=== PATIENT | female | born 1960 | race African-American/Black ===

== ENCOUNTER 2022-12-10 14:35 | Inpatient (IN) | payer OTHER ==
[2022-12-10 15:00] VITALS: BMI 20.2
[2022-12-10] MEDS ORDERED: INSULIN (NOVOLOG) ASPART 100 UNITS/ML 10ML VIAL ONE (19:28)
[2022-12-10] MEDS ORDERED: BENZONATATE 200 MG CAPSULE PO PRN (19:43)
[2022-12-10] MEDS ORDERED: ONDANSETRON *ODT* 4 MG TABLET SL PRN (19:43)
[2022-12-10] MEDS ORDERED: guaiFENesin 600 MG TABLET.ER (FP) PO PRN (19:43)
[2022-12-10] MEDS ORDERED: NALOXONE HCL 0.4 MG/ML VIAL IM PRN (19:43)
[2022-12-10] MEDS ORDERED: MAGNESIUM HYDROX 2400MG/30ML ORAL SUSPENSION 30 ML CUP PO PRN (19:43)
[2022-12-10] MEDS ORDERED: BISMUTH SUBSALICYLATE 524 MG/30 ML PO PRN (19:43)
[2022-12-10] MEDS: INSULIN SLIDING SCALE (NOVOLOG) 1 VIAL SQ SCH ×2 (19:43→21:47)
[2022-12-10] MEDS ORDERED: POLYETHYLENE GLYCOL (HEALTHYLAX) 3350 17 GM PACKET PO PRN (19:43)
[2022-12-10] MEDS ORDERED: BENZOCAINE/MENTHOL (CHLORASEPTIC ) LOZENGE MM PRN (19:43)
[2022-12-10] MEDS ORDERED: NALOXONE HCL (KLOXXADO) 8 MG SPRAY NS PRN (19:43)
[2022-12-10] MEDS ORDERED: ACETAMINOPHEN 325 MG TABLET (FP) PO PRN (19:43)
[2022-12-10] MEDS ORDERED: LOPERAMIDE HCL 2 MG CAPSULE PO PRN (19:43)
[2022-12-10] MEDS ORDERED: P-EPHED 60MG/TRIPROLIDI 2.5MG TABLET PO PRN (19:43)
[2022-12-10] MEDS ORDERED: IBUPROFEN 400 MG TABLET (FP) PO PRN (19:43)
[2022-12-10] MEDS ORDERED: DICYCLOMINE HCL 10 MG CAPSULE PO PRN (19:43)
[2022-12-10] MEDS ORDERED: cloNIDine HCL 0.1 MG TABLET PO PRN (19:52)
[2022-12-10] MEDS: LIDOCAINE 5% TOPICAL PATCH TP SCH (20:58)
[2022-12-10] MEDS: THIAMINE HCL 100 MG TABLET (FP) PO SCH (21:47)
[2022-12-10] MEDS: MELATONIN 5 MG TABLETS PO SCH (21:47)
[2022-12-10] MEDS: METHOCARBAMOL 500 MG TABLET PO PRN (21:49)
[2022-12-10] MEDS: LIDOCAINE PATCH REMOVAL MC SCH (22:59)
[2022-12-11] MEDS: hydrOXYzine PAMOATE 25 MG CAPSULE (FP) PO PRN (05:34)
[2022-12-11] MEDS: INSULIN SLIDING SCALE (NOVOLOG) 1 VIAL SQ SCH ×3 (06:37→17:31)
[2022-12-11] MEDS ORDERED: INSULIN SLIDING SCALE (NOVOLOG) 1 VIAL SQ ONE (06:40)
[2022-12-11] MEDS ORDERED: cloNIDine HCL 0.1 MG TABLET PO PRN (09:59)
[2022-12-11] MEDS ORDERED: methaDONE HCL 10 MG TABLET (FOR DETOX USE ONLY) PO ONE (09:59)
[2022-12-11] MEDS: PRENATAL VITAMINS W/ FOLIC ACID TABLET (FP) PO SCH (10:24)
[2022-12-11] MEDS: LIDOCAINE 5% TOPICAL PATCH TP SCH (10:24)
[2022-12-11] MEDS: NICOTINE 7 MG/24 HOURS TOPICAL PATCH TD SCH (10:25)
[2022-12-11] MEDS: METHOCARBAMOL 500 MG TABLET PO PRN (10:26)
[2022-12-11 10:39] LABS: HEMATOCRIT 30.3 % (32.4-45.2); HEMOGLOBIN 9.9 GM/dL (10.7-15.3); MCH 28.9 pg (25.7-33.7); MCHC 32.6 g/dl (32.0-36.0); MEAN CELL VOLUME 88.8 fl (80-96); MEAN PLT VOLUME 7.8 fl (7.5-11.1); PLATELET COUNT 307 10^3/uL (134-434); RBC 3.41 M/mm3 (3.60-5.2); RDW 13.8 % (11.6-15.6); WHITE BLOOD COUNT 7.1 K/mm3 (4.0-10.0)
[2022-12-11 12:07] LABS: POTASSIUM 4.7 mmol/L (3.5-5.1)
[2022-12-11 12:18] LABS: ALBUMIN 2.8 g/dl (3.4-5.0); BLOOD UREA NITROGEN 44.6 mg/dL (7-18)
[2022-12-11 12:21] LABS: CREATININE 1.7 mg/dL (0.55-1.3)
[2022-12-11 12:23] LABS: BILIRUBIN,TOTAL 0.4 mg/dL (0.2-1); TOT PROT 6.7 g/dl (6.4-8.2)
[2022-12-11] MEDS: ENALAPRIL MALEATE 10 MG TABLET PO SCH (16:56)
[2022-12-11] MEDS ORDERED: INSULIN (NOVOLOG) ASPART 100 UNITS/ML 10ML VIAL SQ ONE (17:26)
[2022-12-11] MEDS: THIAMINE HCL 100 MG TABLET (FP) PO SCH (21:24)
[2022-12-11] MEDS: LIDOCAINE PATCH REMOVAL MC SCH (21:25)
[2022-12-11] MEDS: INSULIN (LEVEMIR) 100 UNITS/ML UNITS SQ SCH (21:25)
[2022-12-11] MEDS: MELATONIN 5 MG TABLETS PO SCH (21:25)
[2022-12-11] MEDS ORDERED: INSULIN (LEVEMIR) 100 UNITS/ML UNITS SQ SCH (22:00)
[2022-12-12] MEDS: INSULIN SLIDING SCALE (NOVOLOG) 1 VIAL SQ SCH ×3 (07:10→16:50)
[2022-12-12] MEDS: hydrOXYzine PAMOATE 25 MG CAPSULE (FP) PO PRN ×2 (10:18→22:10)
[2022-12-12] MEDS: NICOTINE 7 MG/24 HOURS TOPICAL PATCH TD SCH (10:18)
[2022-12-12] MEDS: METHOCARBAMOL 500 MG TABLET PO PRN ×2 (10:18→22:10)
[2022-12-12] MEDS: ENALAPRIL MALEATE 10 MG TABLET PO SCH (10:18)
[2022-12-12] MEDS: LIDOCAINE 5% TOPICAL PATCH TP SCH (10:19)
[2022-12-12] MEDS: PRENATAL VITAMINS W/ FOLIC ACID TABLET (FP) PO SCH (10:19)
[2022-12-12] MEDS: INSULIN (LEVEMIR) 100 UNITS/ML UNITS SQ SCH (22:08)
[2022-12-12] MEDS: MAG HYDROX/AL HYDROX/SIMETH 30 ML UNIT-DOSE CUP PO PRN (22:09)
[2022-12-12] MEDS: THIAMINE HCL 100 MG TABLET (FP) PO SCH (22:11)
[2022-12-12] MEDS: MELATONIN 5 MG TABLETS PO SCH (22:11)
[2022-12-12] MEDS: MICONAZOLE NITRATE 2% VAGINAL CREAM 45 GM TUBE VG SCH (22:13)
[2022-12-12] MEDS: LIDOCAINE PATCH REMOVAL MC SCH (22:14)
[2022-12-13] MEDS: hydrOXYzine PAMOATE 25 MG CAPSULE (FP) PO PRN (05:32)
[2022-12-13] MEDS: INSULIN SLIDING SCALE (NOVOLOG) 1 VIAL SQ SCH ×3 (06:05→17:15)
[2022-12-13] MEDS ORDERED: methaDONE HCL 10 MG TABLET (FOR DETOX USE ONLY) PO ONE (10:00)
[2022-12-13] MEDS: PRENATAL VITAMINS W/ FOLIC ACID TABLET (FP) PO SCH (10:08)
[2022-12-13] MEDS: NICOTINE 7 MG/24 HOURS TOPICAL PATCH TD SCH (10:09)
[2022-12-13] MEDS: LIDOCAINE 5% TOPICAL PATCH TP SCH (10:09)
[2022-12-13] MEDS: ENALAPRIL MALEATE 10 MG TABLET PO SCH (10:10)
[2022-12-13] MEDS: MAG HYDROX/AL HYDROX/SIMETH 30 ML UNIT-DOSE CUP PO PRN (11:46)
[2022-12-13] MEDS: LIDOCAINE PATCH REMOVAL MC SCH (22:34)
[2022-12-13] MEDS: THIAMINE HCL 100 MG TABLET (FP) PO SCH (22:34)
[2022-12-13] MEDS: INSULIN (LEVEMIR) 100 UNITS/ML UNITS SQ SCH (22:34)
[2022-12-13] MEDS: MELATONIN 5 MG TABLETS PO SCH (22:34)
[2022-12-13] MEDS: MICONAZOLE NITRATE 2% VAGINAL CREAM 45 GM TUBE VG SCH (22:35)
[2022-12-13] MEDS: IBUPROFEN 600 MG TABLET (FP) PO PRN (22:37)
[2022-12-14] MEDS: hydrOXYzine PAMOATE 25 MG CAPSULE (FP) PO PRN (05:41)
[2022-12-14] MEDS: METHOCARBAMOL 500 MG TABLET PO PRN ×2 (05:43→21:49)
[2022-12-14] MEDS: IBUPROFEN 600 MG TABLET (FP) PO PRN ×2 (05:43→21:48)
[2022-12-14] MEDS: INSULIN SLIDING SCALE (NOVOLOG) 1 VIAL SQ SCH ×3 (06:24→16:41)
[2022-12-14] MEDS: PRENATAL VITAMINS W/ FOLIC ACID TABLET (FP) PO SCH (09:45)
[2022-12-14] MEDS: ENALAPRIL MALEATE 10 MG TABLET PO SCH (09:45)
[2022-12-14] MEDS: LIDOCAINE 5% TOPICAL PATCH TP SCH (09:45)
[2022-12-14] MEDS: NICOTINE 7 MG/24 HOURS TOPICAL PATCH TD SCH (09:46)
[2022-12-14] MEDS: MAG HYDROX/AL HYDROX/SIMETH 30 ML UNIT-DOSE CUP PO PRN (16:57)
[2022-12-14] MEDS: INSULIN (LEVEMIR) 100 UNITS/ML UNITS SQ SCH (21:48)
[2022-12-14] MEDS: THIAMINE HCL 100 MG TABLET (FP) PO SCH (21:49)
[2022-12-14] MEDS: MELATONIN 5 MG TABLETS PO SCH (21:49)
[2022-12-14] MEDS: LIDOCAINE PATCH REMOVAL MC SCH (22:55)
[2022-12-14] MEDS: MICONAZOLE NITRATE 2% VAGINAL CREAM 45 GM TUBE VG SCH (22:56)
[2022-12-15] MEDS: hydrOXYzine PAMOATE 25 MG CAPSULE (FP) PO PRN ×2 (06:00→21:42)
[2022-12-15] MEDS: METHOCARBAMOL 500 MG TABLET PO PRN (06:00)
[2022-12-15] MEDS: INSULIN SLIDING SCALE (NOVOLOG) 1 VIAL SQ SCH ×3 (06:27→16:53)
[2022-12-15] MEDS: PRENATAL VITAMINS W/ FOLIC ACID TABLET (FP) PO SCH (09:50)
[2022-12-15] MEDS: ENALAPRIL MALEATE 10 MG TABLET PO SCH (09:51)
[2022-12-15] MEDS: LIDOCAINE 5% TOPICAL PATCH TP SCH (09:51)
[2022-12-15] MEDS ORDERED: methaDONE HCL 10 MG TABLET (FOR DETOX USE ONLY) PO ONE (10:00)
[2022-12-15] MEDS: NICOTINE 7 MG/24 HOURS TOPICAL PATCH TD SCH (10:12)
[2022-12-15 12:25] LABS: CHLORIDE 100 mmol/L (98-107); SODIUM 137 mmol/L (136-145)
[2022-12-15 12:29] LABS: CALCIUM 9.2 mg/dL (8.5-10.1)
[2022-12-15 12:31] LABS: BLOOD UREA NITROGEN 65.4 mg/dL (7-18); CO2 32 mmol/L (21-32); GLUCOSE,RANDOM 151 mg/dL (74-106)
[2022-12-15 12:34] LABS: CREATININE 1.9 mg/dL (0.55-1.3)
[2022-12-15 12:36] LABS: ANION GAP 5 MMOL/L (8-16); POTASSIUM 6.6 mmol/L (3.5-5.1)
[2022-12-15] MEDS ORDERED: SODIUM POLYSTYRENE SULFONATE 15 GM/60 ML BOTTLE PO ONE ×2 (13:19→23:30)
[2022-12-15 17:07] LABS: POTASSIUM 6.6 mmol/L (3.5-5.1)
[2022-12-15] MEDS ORDERED: LACTULOSE 20 GM/30 ML UDC (FOR ORAL USE ONLY) PO ONE (21:18)
[2022-12-15 21:36] VITALS: BP 142/78; PULSE 104; RESP 18; TEMP 97.5
[2022-12-15] MEDS: INSULIN (LEVEMIR) 100 UNITS/ML UNITS SQ SCH (21:39)
[2022-12-15] MEDS: THIAMINE HCL 100 MG TABLET (FP) PO SCH (21:41)
[2022-12-15] MEDS: MELATONIN 5 MG TABLETS PO SCH (21:42)
[2022-12-15] MEDS: LIDOCAINE PATCH REMOVAL MC SCH (21:42)
[2022-12-15] MEDS: MICONAZOLE NITRATE 2% VAGINAL CREAM 45 GM TUBE VG SCH (21:43)
[2022-12-15] MEDS ORDERED: DOCUSATE SODIUM 100 MG CAPSULE (FP) PO SCH (22:00)
[2022-12-15 23:21] LABS: POTASSIUM 6.3 mmol/L (3.5-5.1)
== END 2022-12-16 07:02 | disposition short-term general hospital (02) | DRG 773 ==
LOC: YASAS 14:35 → Y3N 19:35
PROVIDERS: ADMIT Allergy & Immunology; ATTEND Surgery
PROC: HZ2ZZZZ Detoxification Services for Substance Abuse Treatment (ICD-10-PCS; principal; 2022-12-10)
DX: F11.10 Opioid abuse, uncomplicated (principal); F14.20 Cocaine dependence, uncomplicated; F17.210 Nicotine dependence, cigarettes, uncomplicated; F19.24 Other psychoactive substance dependence with psychoactive substance-induced mood disorder; E87.5 Hyperkalemia; I10 Essential (primary) hypertension; E11.9 Type 2 diabetes mellitus without complications; Z79.4 Long term (current) use of insulin; N28.9 Disorder of kidney and ureter, unspecified; K59.00 Constipation, unspecified; M54.50 Low back pain, unspecified; G89.29 Other chronic pain; Z99.89 Dependence on other enabling machines and devices
CPT/HCPCS: 36415; 80048; 80053; 82962; 83036; 84132; 85027; 86780; 87635; 93005; 93010; Q0162

== ENCOUNTER 2022-12-16 01:18 | Inpatient (IN) | payer OTHER ==
[2022-12-16 01:27] VITALS: BMI 20.7
[2022-12-16] MEDS ORDERED: MAG HYDROX/AL HYDROX/SIMETH 30 ML UNIT-DOSE CUP PO ONE (01:37)
[2022-12-16] MEDS ORDERED: FAMOTIDINE 20 MG/50 ML IVPB 20 MG/50 ML MG IVPB ONE ×2 (01:37→02:15)
[2022-12-16] MEDS ORDERED: MAG HYDROX/AL HYDROX/SIMETH 30 ML UNIT-DOSE CUP ONE (02:15)
[2022-12-16 02:52] LABS: BASO % 0.4 % (0-2.0); EOS % 1.6 % (0-4.5); HEMATOCRIT 25.6 % (32.4-45.2); HEMOGLOBIN 8.5 GM/dL (10.7-15.3); LYMPH % 36.8 % (8-40); MCH 29.4 pg (25.7-33.7); MCHC 33.2 g/dl (32.0-36.0); MEAN CELL VOLUME 88.6 fl (80-96); MEAN PLT VOLUME 6.8 fl (7.5-11.1); MONO % 10.6 % (3.8-10.2); NEUT % 50.6 % (42.8-82.8); PLATELET COUNT 406 10^3/uL (134-434); RBC 2.89 M/mm3 (3.60-5.2); WHITE BLOOD COUNT 5.3 K/mm3 (4.0-10.0)
[2022-12-16 03:42] LABS: CHLORIDE 101 mmol/L (98-107); SODIUM 141 mmol/L (136-145)
[2022-12-16 03:44] LABS: ALBUMIN 2.6 g/dl (3.4-5.0); ANION GAP 3 MMOL/L (8-16); BLOOD UREA NITROGEN 56.3 mg/dL (7-18); CALCIUM 8.6 mg/dL (8.5-10.1); CO2 36 mmol/L (21-32); GLUCOSE,RANDOM 54 mg/dL (74-106); LIPASE 206 U/L (73-393); MAGNESIUM 3.1 mg/dL (1.8-2.4)
[2022-12-16 03:47] LABS: CREATININE 1.9 mg/dL (0.55-1.3); SGOT/AST 128 U/L (15-37)
[2022-12-16 03:48] LABS: SGPT/ALT 173 U/L (13-61)
[2022-12-16 03:49] LABS: ALK PHOS 193 U/L (45-117); BILIRUBIN,TOTAL < 0.1 mg/dL (0.2-1); TOT PROT 6.4 g/dl (6.4-8.2)
[2022-12-16] MEDS ORDERED: DEXTROSE 50%-WATER - 25 GM/50 ML VIAL IVPUSH ONE ×3 (03:50→14:39)
[2022-12-16] MEDS ORDERED: INSULIN REGULAR HUMAN 100 UNITS/ML *VIAL IVPUSH ONE ×2 (03:50→14:41)
[2022-12-16] MEDS ORDERED: SODIUM BICARBONATE 8.4% 50 MEQ/50 ML DISP.SYRIN IVPUSH ONE ×2 (03:50→16:19)
[2022-12-16] MEDS ORDERED: SODIUM ZIRCONIUM CYCLOSILICATE (LOKELMA) 5 GM PACKET PO ONE ×2 (03:51→14:38)
[2022-12-16] MEDS ORDERED: DEXTROSE 50%-WATER 25 GM/50 ML DISP.SYRIN ONE ×3 (03:59→15:12)
[2022-12-16] MEDS ORDERED: SODIUM BICARBONATE 8.4% 50 MEQ/50 ML DISP.SYRIN ONE ×2 (04:38→16:53)
[2022-12-16] MEDS ORDERED: SODIUM ZIRCONIUM CYCLOSILICATE (LOKELMA) 10 GM PACKET ONE ×2 (04:38→15:12)
[2022-12-16] MEDS ORDERED: SODIUM ZIRCONIUM CYCLOSILICATE (LOKELMA) 5 GM PACKET PO SCH ×2 (10:00→22:00)
[2022-12-16] MEDS ORDERED: SODIUM CHLORIDE 1,000 ML IV SCH (10:00)
[2022-12-16 10:48] LABS: LDH 329 U/L (84-246); PHOSPHOROUS 4.4 mg/dL (2.5-4.9)
[2022-12-16 11:03] LABS: IRON SERUM 38 ug/dL (50-175); TOTAL IRON BINDING CAPACITY 224 ug/dL (250-450)
[2022-12-16 11:21] LABS: RETICULOCYTES 0.73 % (0.5-1.5)
[2022-12-16] MEDS: INSULIN (NOVOLOG) ASPART 100 UNITS/ML 10ML VIAL SQ SCH ×3 (11:45→21:30)
[2022-12-16 12:40] LABS: CALCIUM 8.4 mg/dL (8.5-10.1)
[2022-12-16 12:41] LABS: EPI CELLS 9 /uL (0-25.1); HYALINE CASTS 0 /uL (0-3.1); PH,URINE 7.5 (5.0-8.0); URINE APPEARANCE CLOUDY; URINE BACTERIA 881 /uL (0-1359); URINE BILIRUBIN NEGATIVE (NEGATIVE); URINE COLOR YELLOW; URINE GLUCOSE (UA) NEGATIVE (NEGATIVE); URINE KETONE NEGATIVE (NEGATIVE); URINE LEUK ESTERASE 3+ (NEGATIVE); URINE NITRITE NEGATIVE (NEGATIVE); URINE PROTEIN NEGATIVE (NEGATIVE); URINE RBC 38 /uL (0-23.9); URINE UROBILINOGEN 0.2 mg/dL (0.2-1.0); URINE WBC 1452 /uL (0-25.8)
[2022-12-16 12:42] LABS: BLOOD UREA NITROGEN 54.5 mg/dL (7-18)
[2022-12-16] MEDS ORDERED: HEPARIN NA (PORCINE) 5,000 UNITS/ML 1ML VIAL ONE (14:24)
[2022-12-16] MEDS: HEPARIN NA (PORCINE) 5,000 UNITS/ML 1ML VIAL SQ SCH ×2 (14:39→21:09)
[2022-12-16] MEDS ORDERED: FUROSEMIDE 40 MG/4 ML INJECTABLE VIAL IVPUSH ONE (14:58)
[2022-12-16] MEDS ORDERED: SODIUM CHLORIDE 0.45% 1,000 ML IV SCH (15:00)
[2022-12-16] MEDS ORDERED: FUROSEMIDE 40 MG/4 ML INJECTABLE VIAL ONE (15:12)
[2022-12-16 15:18] LABS: CHLORIDE 104 mmol/L (98-107); SODIUM 137 mmol/L (136-145)
[2022-12-16 15:19] LABS: CALCIUM 8.3 mg/dL (8.5-10.1)
[2022-12-16 15:20] LABS: CO2 31 mmol/L (21-32); GLUCOSE,RANDOM 157 mg/dL (74-106)
[2022-12-16 15:27] LABS: BLOOD UREA NITROGEN 53.4 mg/dL (7-18)
[2022-12-16 15:30] LABS: ANION GAP 3 MMOL/L (8-16); POTASSIUM 6.4 mmol/L (3.5-5.1)
[2022-12-16] MEDS ORDERED: CALCIUM GLUC IN NACL, ISO-OSM 1 GM/50 ML BAG IVPB ONE ×2 (15:32→16:09)
[2022-12-16] MEDS ORDERED: CALCIUM GLUCONATE 10% - 1,000 MG/10 ML VIAL IVPB ONE ×2 (16:19→19:36)
[2022-12-16] MEDS: SODIUM CHLORIDE 0.45% 1,000 ML IV SCH ×2 (17:21→21:19)
[2022-12-16 20:41] LABS: CALCIUM 8.5 mg/dL (8.5-10.1)
[2022-12-16 20:42] LABS: BLOOD UREA NITROGEN 54.5 mg/dL (7-18)
[2022-12-16 20:45] LABS: CREATININE 2.1 mg/dL (0.55-1.3)
[2022-12-16] MEDS: MELATONIN 1 MG TABLET PO PRN (21:58)
[2022-12-16] MEDS ORDERED: DEXTROSE 50%-WATER 25 GM/50 ML DISP.SYRIN IVPUSH ONE (23:06)
[2022-12-16] MEDS ORDERED: INSULIN (NOVOLOG) ASPART 100 UNITS/ML 10ML VIAL SQ ONE (23:06)
[2022-12-17 02:34] LABS: POTASSIUM 5.4 mmol/L (3.5-5.1)
[2022-12-17 02:37] LABS: BLOOD UREA NITROGEN 52.3 mg/dL (7-18); CALCIUM 8.4 mg/dL (8.5-10.1)
[2022-12-17 02:40] LABS: CREATININE 2.1 mg/dL (0.55-1.3)
[2022-12-17] MEDS ORDERED: INSULIN (NOVOLOG) ASPART 100 UNITS/ML 10ML VIAL SQ ONE (03:59)
[2022-12-17] MEDS ORDERED: DEXTROSE 50%-WATER 25 GM/50 ML DISP.SYRIN IVPUSH ONE ×2 (03:59→08:18)
[2022-12-17] MEDS: HEPARIN NA (PORCINE) 5,000 UNITS/ML 1ML VIAL SQ SCH ×3 (05:12→22:06)
[2022-12-17] MEDS ORDERED: SODIUM ZIRCONIUM CYCLOSILICATE (LOKELMA) 5 GM PACKET PO SCH (06:00)
[2022-12-17] MEDS: INSULIN (NOVOLOG) ASPART 100 UNITS/ML 10ML VIAL SQ SCH ×4 (06:07→22:15)
[2022-12-17] MEDS: SODIUM CHLORIDE 0.45% 1,000 ML IV SCH (07:30)
[2022-12-17] MEDS ORDERED: DEXTROSE 50%-WATER 25 GM/50 ML DISP.SYRIN ONE (07:55)
[2022-12-17 08:41] LABS: HEMATOCRIT 25.5 % (32.4-45.2); HEMOGLOBIN 8.7 GM/dL (10.7-15.3); MCH 29.9 pg (25.7-33.7); MEAN CELL VOLUME 87.8 fl (80-96); MEAN PLT VOLUME 6.8 fl (7.5-11.1); PLATELET COUNT 412 10^3/uL (134-434); RBC 2.91 M/mm3 (3.60-5.2); RDW 14.2 % (11.6-15.6); WHITE BLOOD COUNT 5.1 K/mm3 (4.0-10.0)
[2022-12-17 09:05] LABS: CHLORIDE 104 mmol/L (98-107); POTASSIUM 5.6 mmol/L (3.5-5.1); SODIUM 140 mmol/L (136-145)
[2022-12-17 09:08] LABS: CALCIUM 8.8 mg/dL (8.5-10.1)
[2022-12-17 09:10] LABS: ALBUMIN 2.4 g/dl (3.4-5.0); ANION GAP 3 MMOL/L (8-16); CO2 33 mmol/L (21-32); MAGNESIUM 2.8 mg/dL (1.8-2.4)
[2022-12-17 09:12] LABS: CREATININE 2.1 mg/dL (0.55-1.3); PHOSPHOROUS 4.7 mg/dL (2.5-4.9); SGOT/AST 103 U/L (15-37); SGPT/ALT 200 U/L (13-61)
[2022-12-17 09:13] LABS: BILIRUBIN,TOTAL 0.1 mg/dL (0.2-1); TOT PROT 5.9 g/dl (6.4-8.2)
[2022-12-17 09:15] LABS: ALK PHOS 174 U/L (45-117)
[2022-12-17 09:23] LABS: GLUCOSE,RANDOM 35 mg/dL (74-106)
[2022-12-17 13:40] LABS: URINE UREA NITROGEN 454 mg/dL (350-1000)
[2022-12-17] MEDS: DEXTROSE 5%-0.45% SALINE 1,000 ML IV SCH (16:47)
[2022-12-17] MEDS: SODIUM ZIRCONIUM CYCLOSILICATE (LOKELMA) 5 GM PACKET PO SCH (22:06)
[2022-12-17] MEDS: MELATONIN 1 MG TABLET PO PRN (23:30)
[2022-12-18] MEDS: HEPARIN NA (PORCINE) 5,000 UNITS/ML 1ML VIAL SQ SCH ×3 (05:37→21:38)
[2022-12-18] MEDS: INSULIN (NOVOLOG) ASPART 100 UNITS/ML 10ML VIAL SQ SCH ×4 (06:09→21:50)
[2022-12-18 07:08] LABS: POTASSIUM 5.9 mmol/L (3.5-5.1)
[2022-12-18 07:10] LABS: ALBUMIN 2.4 g/dl (3.4-5.0); BLOOD UREA NITROGEN 46.5 mg/dL (7-18); CALCIUM 8.9 mg/dL (8.5-10.1)
[2022-12-18 07:13] LABS: CREATININE 1.9 mg/dL (0.55-1.3)
[2022-12-18 07:15] LABS: BILIRUBIN,TOTAL 0.2 mg/dL (0.2-1); TOT PROT 6.1 g/dl (6.4-8.2)
[2022-12-18] MEDS: SODIUM ZIRCONIUM CYCLOSILICATE (LOKELMA) 5 GM PACKET PO SCH ×2 (09:36→21:41)
[2022-12-18] MEDS ORDERED: CEFUROXIME AXETIL 500 MG TABLET PO SCH (11:00)
[2022-12-18] MEDS ORDERED: CEFUROXIME AXETIL 250 MG TABLET PO SCH ×2 (11:15→22:00)
[2022-12-18] MEDS: LIDOCAINE 5% TOPICAL PATCH TP SCH (11:37)
[2022-12-18] MEDS: CEFUROXIME AXETIL 250 MG TABLET PO SCH ×2 (13:57→21:37)
[2022-12-18] MEDS ORDERED: SODIUM ZIRCONIUM CYCLOSILICATE (LOKELMA) 5 GM PACKET PO ONE (15:12)
[2022-12-18 16:16] LABS: POTASSIUM 5.5 mmol/L (3.5-5.1)
[2022-12-18 16:19] LABS: BLOOD UREA NITROGEN 39.4 mg/dL (7-18)
[2022-12-18 16:22] LABS: CREATININE 1.7 mg/dL (0.55-1.3)
[2022-12-18] MEDS: DEXTROSE 5%-0.45% SALINE 1,000 ML IV SCH (17:06)
[2022-12-18] MEDS: MELATONIN 1 MG TABLET PO PRN (21:41)
[2022-12-18] MEDS ORDERED: MICONAZOLE NITRATE 2% VAGINAL CREAM 45 GM TUBE VG SCH (22:00)
[2022-12-18] MEDS ORDERED: LIDOCAINE PATCH REMOVAL MC SCH (22:00)
[2022-12-19] MEDS: DEXTROSE 5%-0.45% SALINE 1,000 ML IV SCH ×2 (05:58→13:42)
[2022-12-19] MEDS: INSULIN (NOVOLOG) ASPART 100 UNITS/ML 10ML VIAL SQ SCH ×4 (06:02→21:55)
[2022-12-19] MEDS: HEPARIN NA (PORCINE) 5,000 UNITS/ML 1ML VIAL SQ SCH ×4 (06:03→22:13)
[2022-12-19 07:37] LABS: HEMATOCRIT 26.9 % (32.4-45.2); HEMOGLOBIN 8.8 GM/dL (10.7-15.3); MCH 29.2 pg (25.7-33.7); MCHC 32.8 g/dl (32.0-36.0); MEAN PLT VOLUME 7.1 fl (7.5-11.1); PLATELET COUNT 443 10^3/uL (134-434); RBC 3.03 M/mm3 (3.60-5.2); WHITE BLOOD COUNT 7.9 K/mm3 (4.0-10.0)
[2022-12-19 08:35] LABS: CALCIUM 8.9 mg/dL (8.5-10.1)
[2022-12-19 08:36] LABS: BLOOD UREA NITROGEN 37.6 mg/dL (7-18)
[2022-12-19 08:37] LABS: POTASSIUM 5.3 mmol/L (3.5-5.1)
[2022-12-19 08:39] LABS: CREATININE 1.7 mg/dL (0.55-1.3); PHOSPHOROUS 4.9 mg/dL (2.5-4.9)
[2022-12-19] MEDS: LIDOCAINE 5% TOPICAL PATCH TP SCH (09:51)
[2022-12-19] MEDS: SODIUM ZIRCONIUM CYCLOSILICATE (LOKELMA) 5 GM PACKET PO SCH ×2 (09:53→21:58)
[2022-12-19] MEDS: CEFUROXIME AXETIL 250 MG TABLET PO SCH ×3 (10:32→23:59)
[2022-12-19] MEDS ORDERED: DEXTROSE 5%-0.45% SALINE 1,000 ML IV SCH (14:09)
[2022-12-19] MEDS: MICONAZOLE NITRATE 2% VAGINAL CREAM 45 GM TUBE VG SCH (21:58)
[2022-12-19] MEDS: LIDOCAINE PATCH REMOVAL MC SCH (21:59)
[2022-12-19] MEDS: MELATONIN 1 MG TABLET PO PRN (23:59)
[2022-12-20] MEDS: HEPARIN NA (PORCINE) 5,000 UNITS/ML 1ML VIAL SQ SCH ×3 (06:31→21:10)
[2022-12-20 07:10] VITALS: RESP 18
[2022-12-20] MEDS: INSULIN (NOVOLOG) ASPART 100 UNITS/ML 10ML VIAL SQ SCH ×4 (07:10→21:15)
[2022-12-20 08:42] LABS: ALBUMIN 2.6 g/dl (3.4-5.0); BLOOD UREA NITROGEN 35.4 mg/dL (7-18)
[2022-12-20 08:45] LABS: CREATININE 1.8 mg/dL (0.55-1.3)
[2022-12-20 08:46] LABS: BILIRUBIN,TOTAL 0.1 mg/dL (0.2-1); TOT PROT 6.5 g/dl (6.4-8.2)
[2022-12-20 09:29] LABS: HEMATOCRIT 25.2 % (32.4-45.2); HEMOGLOBIN 8.7 GM/dL (10.7-15.3); MCHC 34.7 g/dl (32.0-36.0); MEAN CELL VOLUME 86.4 fl (80-96); MEAN PLT VOLUME 6.3 fl (7.5-11.1); PLATELET COUNT 425 10^3/uL (134-434); RBC 2.91 M/mm3 (3.60-5.2); RDW 14.1 % (11.6-15.6); WHITE BLOOD COUNT 10.7 K/mm3 (4.0-10.0)
[2022-12-20] MEDS: CEFUROXIME AXETIL 250 MG TABLET PO SCH ×2 (10:07→21:08)
[2022-12-20] MEDS: SODIUM ZIRCONIUM CYCLOSILICATE (LOKELMA) 5 GM PACKET PO SCH (10:07)
[2022-12-20] MEDS: INSULIN (LEVEMIR) 100 UNITS/ML UNITS SQ SCH (10:08)
[2022-12-20] MEDS: LIDOCAINE 5% TOPICAL PATCH TP SCH (10:08)
[2022-12-20] MEDS ORDERED: INSULIN (NOVOLOG) ASPART 100 UNITS/ML 10ML VIAL ONE ×2 (11:27→21:04)
[2022-12-20] MEDS: MICONAZOLE NITRATE 2% VAGINAL CREAM 45 GM TUBE VG SCH (21:09)
[2022-12-20] MEDS: LIDOCAINE PATCH REMOVAL MC SCH (21:10)
[2022-12-20] MEDS: MELATONIN 1 MG TABLET PO PRN (21:30)
[2022-12-20] MEDS ORDERED: INSULIN (LEVEMIR) 100 UNITS/ML UNITS SQ SCH (22:00)
[2022-12-21] MEDS: HEPARIN NA (PORCINE) 5,000 UNITS/ML 1ML VIAL SQ SCH ×3 (06:03→22:00)
[2022-12-21] MEDS: INSULIN (NOVOLOG) ASPART 100 UNITS/ML 10ML VIAL SQ SCH ×6 (06:03→22:03)
[2022-12-21 07:53] LABS: BASO % 0.4 % (0-2.0); EOS % 0.7 % (0-4.5); HEMATOCRIT 25.8 % (32.4-45.2); HEMOGLOBIN 8.6 GM/dL (10.7-15.3); LYMPH % 18.3 % (8-40); MCH 29.6 pg (25.7-33.7); MCHC 33.4 g/dl (32.0-36.0); MEAN CELL VOLUME 88.6 fl (80-96); MEAN PLT VOLUME 6.8 fl (7.5-11.1); MONO % 7.7 % (3.8-10.2); NEUT % 72.9 % (42.8-82.8); PLATELET COUNT 468 10^3/uL (134-434); RBC 2.92 M/mm3 (3.60-5.2); RDW 14.2 % (11.6-15.6)
[2022-12-21 08:11] LABS: POTASSIUM 4.8 mmol/L (3.5-5.1)
[2022-12-21 08:14] LABS: BLOOD UREA NITROGEN 50.5 mg/dL (7-18); CALCIUM 8.6 mg/dL (8.5-10.1)
[2022-12-21 08:18] LABS: CREATININE 1.8 mg/dL (0.55-1.3)
[2022-12-21] MEDS ORDERED: INSULIN (LEVEMIR) 100 UNITS/ML UNITS SQ ONE (08:34)
[2022-12-21] MEDS ORDERED: INSULIN (NOVOLOG) ASPART 100 UNITS/ML 10ML VIAL ONE ×3 (08:34→21:49)
[2022-12-21] MEDS: CEFUROXIME AXETIL 250 MG TABLET PO SCH ×2 (09:26→22:00)
[2022-12-21] MEDS: LIDOCAINE 5% TOPICAL PATCH TP SCH (09:26)
[2022-12-21] MEDS: INSULIN (LEVEMIR) 100 UNITS/ML UNITS SQ SCH ×2 (09:26→13:24)
[2022-12-21] MEDS ORDERED: SODIUM ZIRCONIUM CYCLOSILICATE (LOKELMA) 5 GM PACKET PO SCH ×2 (10:00→10:45)
[2022-12-21] MEDS ORDERED: INSULIN (LEVEMIR) 100 UNITS/ML UNITS SQ SCH (11:21)
[2022-12-21] MEDS: LIDOCAINE PATCH REMOVAL MC SCH (22:03)
[2022-12-21] MEDS: MICONAZOLE NITRATE 2% VAGINAL CREAM 45 GM TUBE VG SCH (22:04)
[2022-12-21] MEDS: MELATONIN 1 MG TABLET PO PRN (22:30)
[2022-12-22] MEDS: HEPARIN NA (PORCINE) 5,000 UNITS/ML 1ML VIAL SQ SCH (07:52)
[2022-12-22] MEDS: INSULIN (LEVEMIR) 100 UNITS/ML UNITS SQ SCH (07:54)
[2022-12-22] MEDS: INSULIN (NOVOLOG) ASPART 100 UNITS/ML 10ML VIAL SQ SCH ×4 (07:55→11:19)
[2022-12-22] MEDS ORDERED: INSULIN (NOVOLOG) ASPART 100 UNITS/ML 10ML VIAL ONE ×2 (08:16→11:42)
[2022-12-22] MEDS ORDERED: INSULIN (LEVEMIR) 100 UNITS/ML UNITS SQ ONE (08:17)
[2022-12-22 09:05] LABS: BASO % 0.6 % (0-2.0); EOS % 0.9 % (0-4.5); HEMATOCRIT 28.1 % (32.4-45.2); HEMOGLOBIN 9.5 GM/dL (10.7-15.3); LYMPH % 20.7 % (8-40); MCH 29.9 pg (25.7-33.7); MCHC 33.8 g/dl (32.0-36.0); MEAN CELL VOLUME 88.6 fl (80-96); MEAN PLT VOLUME 6.8 fl (7.5-11.1); MONO % 7.1 % (3.8-10.2); NEUT % 70.7 % (42.8-82.8); PLATELET COUNT 499 10^3/uL (134-434); RBC 3.18 M/mm3 (3.60-5.2); RDW 14.3 % (11.6-15.6); WHITE BLOOD COUNT 10.3 K/mm3 (4.0-10.0)
[2022-12-22 09:23] LABS: POTASSIUM 5.2 mmol/L (3.5-5.1)
[2022-12-22] MEDS: LIDOCAINE 5% TOPICAL PATCH TP SCH (09:29)
[2022-12-22] MEDS: CEFUROXIME AXETIL 250 MG TABLET PO SCH (09:30)
[2022-12-22 09:32] LABS: CALCIUM 9.5 mg/dL (8.5-10.1)
[2022-12-22 09:33] LABS: ALBUMIN 2.9 g/dl (3.4-5.0); BLOOD UREA NITROGEN 48.3 mg/dL (7-18)
[2022-12-22 09:36] LABS: CREATININE 1.5 mg/dL (0.55-1.3)
[2022-12-22 09:38] LABS: BILIRUBIN,TOTAL 0.4 mg/dL (0.2-1); TOT PROT 7.2 g/dl (6.4-8.2)
[2022-12-22 10:46] VITALS: TEMP 97.8
[2022-12-22 13:43] VITALS: BP 141/78; PULSE 97
[2022-12-22] MEDS ORDERED: SODIUM ZIRCONIUM CYCLOSILICATE (LOKELMA) 5 GM PACKET PO SCH (14:59)
== END 2022-12-22 14:50 | disposition other institution (70) | DRG 425 ==
LOC: JER 01:18 → JERBED 02:33 → INTOOBSV 02:33 → UNDOADMOB 02:33 → JERBED 09:22 → OBSVTOIN 11:53 → J4S 17:47 → J7W 12-19 12:58
PROVIDERS: ADMIT Internal Medicine; ATTEND Internal Medicine
DX: E87.5 Hyperkalemia (principal); N17.9 Acute kidney failure, unspecified; I12.9 Hypertensive chronic kidney disease with stage 1 through stage 4 chronic kidney disease, or unspecified chronic kidney disease; E11.22 Type 2 diabetes mellitus with diabetic chronic kidney disease; N18.9 Chronic kidney disease, unspecified; D63.1 Anemia in chronic kidney disease; F19.10 Other psychoactive substance abuse, uncomplicated; F11.20 Opioid dependence, uncomplicated; E11.65 Type 2 diabetes mellitus with hyperglycemia; M54.50 Low back pain, unspecified; N39.0 Urinary tract infection, site not specified; B96.1 Klebsiella pneumoniae [K. pneumoniae] as the cause of diseases classified elsewhere; B96.20 Unspecified Escherichia coli [E. coli] as the cause of diseases classified elsewhere; E11.42 Type 2 diabetes mellitus with diabetic polyneuropathy
CPT/HCPCS: 36415; 71045-TC-FY; 76700-TC; 80048; 80053; 81003; 82272; 82607; 82728; 82746; 82962; 83010; 83036; 83540; 83550; 83615; 83690; 83735; 84100; 84132; 84300; 84443; 84484; 84540; 85025; 85027; 85045; 86705; 86803; 87086; 87186; 87517; 87635; 93005; 93010; 93306-TC; 99285-25; G0378; J1644

== ENCOUNTER 2022-12-22 16:14 | Inpatient (IN) | payer OTHER ==
[2022-12-22 17:37] VITALS: BMI 20.1
[2022-12-22] MEDS ORDERED: MAG HYDROX/AL HYDROX/SIMETH 30 ML UNIT-DOSE CUP PO PRN (19:58)
[2022-12-22] MEDS ORDERED: BENZOCAINE/MENTHOL (CHLORASEPTIC ) LOZENGE MM PRN (19:58)
[2022-12-22] MEDS ORDERED: COLLOIDAL OATMEAL 1 BAR EACH TP PRN (19:58)
[2022-12-22] MEDS ORDERED: NALOXONE HCL (KLOXXADO) 8 MG SPRAY NS PRN (19:58)
[2022-12-22] MEDS ORDERED: BENZONATATE 200 MG CAPSULE PO PRN (19:58)
[2022-12-22] MEDS ORDERED: MAGNESIUM HYDROX 2400MG/30ML ORAL SUSPENSION 30 ML CUP PO PRN (19:58)
[2022-12-22] MEDS ORDERED: IBUPROFEN 600 MG TABLET (FP) PO PRN (19:58)
[2022-12-22] MEDS ORDERED: LOPERAMIDE HCL 2 MG CAPSULE PO PRN (19:58)
[2022-12-22] MEDS ORDERED: POLYETHYLENE GLYCOL (HEALTHYLAX) 3350 17 GM PACKET PO PRN (19:58)
[2022-12-22] MEDS ORDERED: guaiFENesin 600 MG TABLET.ER (FP) PO PRN (19:58)
[2022-12-22] MEDS ORDERED: IBUPROFEN 400 MG TABLET (FP) PO PRN (19:58)
[2022-12-22] MEDS ORDERED: NALOXONE HCL 0.4 MG/ML VIAL IM PRN (19:58)
[2022-12-22] MEDS ORDERED: AMMONIUM LACTATE 12% LOTION 225 GM BOTTLE TP PRN (19:58)
[2022-12-22] MEDS ORDERED: INSULIN (NOVOLOG) ASPART 100 UNITS/ML 10ML VIAL ONE (20:20)
[2022-12-22] MEDS ORDERED: amLODIPine BESYLATE 5 MG TABLET (FP) ONE (20:23)
[2022-12-22] MEDS: amLODIPine BESYLATE 10 MG TABLET (FP) PO SCH (20:28)
[2022-12-22] MEDS: INSULIN SLIDING SCALE (NOVOLOG) 1 VIAL SQ SCH (20:30)
[2022-12-22] MEDS ORDERED: MELATONIN 5 MG TABLETS PO SCH (22:00)
[2022-12-22] MEDS: THIAMINE HCL 100 MG TABLET (FP) PO SCH (22:34)
[2022-12-22] MEDS: INSULIN (LEVEMIR) 100 UNITS/ML UNITS SQ SCH (22:59)
[2022-12-22] MEDS: CEFUROXIME AXETIL 250 MG TABLET PO SCH (23:38)
[2022-12-23] MEDS: ACETAMINOPHEN 325 MG TABLET (FP) PO PRN ×2 (06:08→11:20)
[2022-12-23] MEDS: hydrOXYzine PAMOATE 25 MG CAPSULE (FP) PO PRN (06:09)
[2022-12-23] MEDS: INSULIN SLIDING SCALE (NOVOLOG) 1 VIAL SQ SCH ×3 (06:13→16:36)
[2022-12-23] MEDS: PRENATAL VITAMINS W/ FOLIC ACID TABLET (FP) PO SCH (09:43)
[2022-12-23] MEDS: amLODIPine BESYLATE 10 MG TABLET (FP) PO SCH (09:44)
[2022-12-23] MEDS: CEFUROXIME AXETIL 250 MG TABLET PO SCH ×2 (09:44→21:28)
[2022-12-23] MEDS: SODIUM ZIRCONIUM CYCLOSILICATE (LOKELMA) 10 GM PACKET PO SCH (09:45)
[2022-12-23] MEDS ORDERED: ENALAPRIL MALEATE 10 MG TABLET PO SCH (10:00)
[2022-12-23 11:16] LABS: PH,URINE 5.5 (5.0-8.0); URINE APPEARANCE CLEAR; URINE BILIRUBIN NEGATIVE (NEGATIVE); URINE COLOR YELLOW; URINE GLUCOSE (UA) NEGATIVE (NEGATIVE); URINE KETONE NEGATIVE (NEGATIVE); URINE LEUK ESTERASE NEGATIVE (NEGATIVE); URINE NITRITE NEGATIVE (NEGATIVE); URINE PROTEIN NEGATIVE (NEGATIVE); URINE UROBILINOGEN 0.2 mg/dL (0.2-1.0)
[2022-12-23] MEDS ORDERED: INSULIN (NOVOLOG) ASPART 100 UNITS/ML 10ML VIAL ONE ×2 (11:16→16:34)
[2022-12-23] MEDS: SUVOREXANT 10 MG TABLET PO PRN (21:28)
[2022-12-23] MEDS: THIAMINE HCL 100 MG TABLET (FP) PO SCH (21:29)
[2022-12-23] MEDS: INSULIN (LEVEMIR) 100 UNITS/ML UNITS SQ SCH (21:31)
[2022-12-24] MEDS ORDERED: INSULIN (NOVOLOG) ASPART 100 UNITS/ML 10ML VIAL ONE ×3 (07:26→16:47)
[2022-12-24] MEDS: INSULIN SLIDING SCALE (NOVOLOG) 1 VIAL SQ SCH ×3 (07:27→16:47)
[2022-12-24] MEDS: amLODIPine BESYLATE 10 MG TABLET (FP) PO SCH (09:21)
[2022-12-24] MEDS: SODIUM ZIRCONIUM CYCLOSILICATE (LOKELMA) 10 GM PACKET PO SCH (09:21)
[2022-12-24] MEDS: PRENATAL VITAMINS W/ FOLIC ACID TABLET (FP) PO SCH (09:21)
[2022-12-24] MEDS: CEFUROXIME AXETIL 250 MG TABLET PO SCH ×2 (09:23→21:10)
[2022-12-24] MEDS: SUVOREXANT 10 MG TABLET PO PRN (21:09)
[2022-12-24] MEDS: THIAMINE HCL 100 MG TABLET (FP) PO SCH (21:10)
[2022-12-24] MEDS: INSULIN (LEVEMIR) 100 UNITS/ML UNITS SQ SCH (21:12)
[2022-12-25] MEDS ORDERED: guaiFENesin 200 MG/10 ML 10 ML UNIT-DOSE CUPS PO PRN (01:16)
[2022-12-25] MEDS: hydrOXYzine PAMOATE 25 MG CAPSULE (FP) PO PRN (02:47)
[2022-12-25] MEDS: INSULIN SLIDING SCALE (NOVOLOG) 1 VIAL SQ SCH ×2 (06:13→12:24)
[2022-12-25 07:23] VITALS: BP 159/81; PULSE 100; RESP 18; TEMP 97.7
[2022-12-25] MEDS: PRENATAL VITAMINS W/ FOLIC ACID TABLET (FP) PO SCH (09:35)
[2022-12-25] MEDS: amLODIPine BESYLATE 10 MG TABLET (FP) PO SCH (09:35)
[2022-12-25] MEDS: SODIUM ZIRCONIUM CYCLOSILICATE (LOKELMA) 10 GM PACKET PO SCH (09:35)
[2022-12-25] MEDS: CEFUROXIME AXETIL 250 MG TABLET PO SCH (09:35)
[2022-12-25] MEDS ORDERED: METHYL SALICYLATE/MENTHOL OINT 30 GM TUBE TP SCH (10:00)
== END 2022-12-25 11:30 | disposition left against medical advice (07) | DRG 770 ==
LOC: YASAS 16:14 → Y5N 19:34
PROVIDERS: ADMIT Allergy & Immunology; ATTEND Psychiatry & Neurology Pain Medicine
PROC: HZ42ZZZ Group Counseling for Substance Abuse Treatment, Cognitive-Behavioral (ICD-10-PCS; principal; 2022-12-22)
DX: F11.20 Opioid dependence, uncomplicated (principal); F14.20 Cocaine dependence, uncomplicated; F17.210 Nicotine dependence, cigarettes, uncomplicated; F19.282 Other psychoactive substance dependence with psychoactive substance-induced sleep disorder; F19.24 Other psychoactive substance dependence with psychoactive substance-induced mood disorder; I10 Essential (primary) hypertension; G62.9 Polyneuropathy, unspecified; E11.9 Type 2 diabetes mellitus without complications; Z79.4 Long term (current) use of insulin; M54.50 Low back pain, unspecified; G89.29 Other chronic pain
CPT/HCPCS: 36415; 81003; 82962; 86803; 87635